=== PATIENT | female | born 1970 | race African-American/Black ===

== ENCOUNTER 2022-03-15 09:55 | Observation (INO) ==
[2022-03-15] MEDS ORDERED: HYDROmorphone 1 MG/1 ML SYRINGE IV STA ×3 (14:06→16:23)
[2022-03-15] MEDS ORDERED: ONDANSETRON 4 MG/2 ML VIAL IV STA (14:06)
[2022-03-15] MEDS ORDERED: methylPREDNISolone SOD SUC 125 MG/2 ML VIAL IV STA (14:22)
[2022-03-15 14:45] LABS: Basophils # 0.1 10*3/uL (0.0-0.2); Basophils % 0.8 % (0.0-0.8); Eosinophils # 0.2 10*3/uL (0.0-0.87); Eosinophils % 1.8 % (0.00-10.9); Hematocrit 28.8 VOL% (35.7-47.0); Hemoglobin 9.5 GM/DL (12.0-16.0); Immature Granulocytes % 3.2 %; Immature Granulocytes Absolute 0.29 #; Lymphocytes # 1.1 10*3/uL (1.4-4.0); Lymphocytes % 11.8 % (21.3-54.2); Mean Corpuscular Volume 95.7 FL (87-102); Mean Platelet Volume 11.1 FL (9.6-12.0); Monocytes # 0.5 10*3/uL (0.11-0.8); Monocytes % 5.6 % (1.7-12.7); NRBC # 0.48 10*3/uL; Neutrophils % 76.8 % (38.7-73.9); Platelet Count 367 T/CUMM (130-400); Red Blood Count 3.01 MC/CUMM (3.8-5.5); Red Cell Distribution Width 18.1 % (9.3-17.3)
[2022-03-15 14:55] LABS: INR 1.2; PT Patient Result 12.7 SECS (10.5-12.0)
[2022-03-15 15:03] LABS: Albumin 2.2 G/DL (3.4-5.0); Bilirubin,Total 1.8 MG/DL (0.20-1.00); Potassium 3.7 MMOL/L (3.5-5.1); Total Protein 8.7 G/DL (6.4-8.2)
[2022-03-15] MEDS ORDERED: DEXTROSE 50% 25 GM/50 ML VIAL IV PRN (15:59)
[2022-03-15] MEDS ORDERED: GLUCAGON 1 MG VIAL IM PRN ×2 (15:59)
[2022-03-15] MEDS ORDERED: DEXTROSE 10% 250 ML BAG IV PRN (16:07)
[2022-03-15] MEDS: INSULIN LISPRO 100 UNIT/ML SUBCUT SCH ×2 (17:48→21:04)
[2022-03-15] MEDS ORDERED: fentaNYL 75 MCG/HR PATCH TRANSDERM SCH (18:00)
[2022-03-15] MEDS: oxyCODONE/ACETAMINOPHEN 5-325 MG TABLET PO PRN ×2 (18:05→23:55)
[2022-03-15] MEDS: ENOXAPARIN 40 MG/0.4 ML SYRINGE SUBCUT SCH (18:10)
[2022-03-15 19:32] LABS: Bilirubin,Urine Moderate mg/dL (Negative); Blood, Urine Negative (Negative); Glucose,Urine (UA) Negative (Negative); Ketones,Urine Negative (Negative); Nitrite,Urine Negative (Negative); Protein,Urine 30 mg/dL (Negative); Urine Appearance Clear (Clear); Urine Color Dark Yellow (Yellow); Urine pH 5.5 (4.5-8.0)
[2022-03-15 19:33] LABS: Mucus,Urine Occasional /LPF (Occasional); Squamous Epithelial Cell,Urine Occasional /HPF (0-10)
[2022-03-15] MEDS: MORPHINE 2 MG/1 ML SYRINGE IV PRN (20:49)
[2022-03-15] MEDS ORDERED: ALUMINUM/MAGNES/SIMETH MAX STR 30 ML UDCUP PO PRN (22:03)
[2022-03-15] MEDS: ONDANSETRON 4 MG/2 ML VIAL IV PRN (22:30)
[2022-03-16] MEDS: MORPHINE 2 MG/1 ML SYRINGE IV PRN ×5 (01:56→20:09)
[2022-03-16] MEDS: oxyCODONE/ACETAMINOPHEN 5-325 MG TABLET PO PRN ×2 (05:53→21:57)
[2022-03-16] MEDS: ONDANSETRON 4 MG/2 ML VIAL IV PRN ×3 (07:58→15:55)
[2022-03-16] MEDS: INSULIN LISPRO 100 UNIT/ML SUBCUT SCH ×4 (07:59→20:44)
[2022-03-16] MEDS: PANTOPRAZOLE 40 MG TABLET PO SCH (09:27)
[2022-03-16] MEDS: POLYETHYLENE GLYCOL POWDER 17 GM PACK PO SCH (11:54)
[2022-03-16] MEDS: ENOXAPARIN 40 MG/0.4 ML SYRINGE SUBCUT SCH (15:56)
[2022-03-16] MEDS: azaTHIOprine 50 MG TABLET PO SCH (21:00)
[2022-03-16] MEDS ORDERED: PYRIDOSTIGMINE 60 MG TABLET PO SCH (21:00)
[2022-03-16] MEDS: DOCUSATE SODIUM 100 MG CAPSULE PO SCH (21:00)
[2022-03-17] MEDS: MORPHINE 2 MG/1 ML SYRINGE IV PRN ×3 (00:06→08:29)
[2022-03-17 06:12] LABS: Basophils # 0.1 10*3/uL (0.0-0.2); Basophils % 0.9 % (0.0-0.8); Eosinophils # 0.1 10*3/uL (0.0-0.87); Eosinophils % 1.7 % (0.00-10.9); Hemoglobin 8.5 GM/DL (12.0-16.0); Immature Granulocytes % 2.6 %; Immature Granulocytes Absolute 0.21 #; Lymphocytes # 1.3 10*3/uL (1.4-4.0); Lymphocytes % 16.2 % (21.3-54.2); Mean Corpuscular HGB Conc 32.7 GM/DL (32-36); Mean Platelet Volume 10.7 FL (9.6-12.0); Monocytes # 0.5 10*3/uL (0.11-0.8); Monocytes % 6.3 % (1.7-12.7); NRBC # 0.42 10*3/uL; Neutrophils % 72.3 % (38.7-73.9); Platelet Count 312 T/CUMM (130-400); Red Blood Count 2.68 MC/CUMM (3.8-5.5); Red Cell Distribution Width 18.7 % (9.3-17.3); White Blood Count 8.1 T/CUMM (4-12)
[2022-03-17 06:30] LABS: Osmolality,Calculated 269.1 MOS/KG (273-304); Potassium 4.2 MMOL/L (3.5-5.1)
[2022-03-17 08:17] VITALS: BP 101/65
[2022-03-17] MEDS: INSULIN LISPRO 100 UNIT/ML SUBCUT SCH ×2 (08:25→11:32)
[2022-03-17] MEDS: POLYETHYLENE GLYCOL POWDER 17 GM PACK PO SCH (08:27)
[2022-03-17] MEDS: ONDANSETRON 4 MG/2 ML VIAL IV PRN (08:29)
[2022-03-17] MEDS: DOCUSATE SODIUM 100 MG CAPSULE PO SCH (08:31)
[2022-03-17] MEDS: PANTOPRAZOLE 40 MG TABLET PO SCH (08:31)
[2022-03-17] MEDS: azaTHIOprine 50 MG TABLET PO SCH (08:31)
[2022-03-17] MEDS ORDERED: predniSONE 5 MG TABLET PO SCH (09:00)
[2022-03-17] MEDS ORDERED: LISINOPRIL/HCTZ 20-25 MG TABLET PO SCH (09:00)
[2022-03-17] MEDS ORDERED: amLODIPine 2.5 MG TABLET PO SCH (09:00)
[2022-03-17] MEDS: oxyCODONE/ACETAMINOPHEN 5-325 MG TABLET PO PRN (11:32)
== END 2022-03-17 12:05 | disposition home or self-care (01) ==
LOC: N.ED 09:55 → N.TELES 09:55
PROVIDERS: ADMIT Internal Medicine; ATTEND Internal Medicine

== ENCOUNTER 2022-03-21 13:12 | Inpatient (IN) ==
[2022-03-21] MEDS ORDERED: ONDANSETRON 4 MG/2 ML VIAL IV STA ×2 (14:21→18:14)
[2022-03-21] MEDS ORDERED: SODIUM CHLORIDE 0.9% 1,000 ML IV STA (14:21)
[2022-03-21] MEDS ORDERED: PANTOPRAZOLE 40 MG VIAL IV STA (14:22)
[2022-03-21] MEDS ORDERED: MORPHINE 2 MG/1 ML SYRINGE IV STA (14:23)
[2022-03-21 14:34] LABS: Basophils # 0.1 10*3/uL (0.0-0.2); Basophils % 0.6 % (0.0-0.8); Eosinophils % 0.3 % (0.00-10.9); Hematocrit 26.1 VOL% (35.7-47.0); Hemoglobin 8.5 GM/DL (12.0-16.0); Immature Granulocytes % 3.9 %; Immature Granulocytes Absolute 0.47 #; Lymphocytes # 1.4 10*3/uL (1.4-4.0); Lymphocytes % 11.2 % (21.3-54.2); Mean Corpuscular HGB Conc 32.6 GM/DL (32-36); Mean Corpuscular Volume 96.3 FL (87-102); Mean Platelet Volume 11.7 FL (9.6-12.0); Monocytes # 0.6 10*3/uL (0.11-0.8); Monocytes % 4.7 % (1.7-12.7); NRBC # 1.71 10*3/uL; Neutrophils % 79.3 % (38.7-73.9); Platelet Count 233 T/CUMM (130-400); Red Blood Count 2.71 MC/CUMM (3.8-5.5); Red Cell Distribution Width 22.2 % (9.3-17.3); White Blood Count 12.1 T/CUMM (4-12)
[2022-03-21 14:45] LABS: INR 1.3; PT Patient Result 13.7 SECS (10.5-12.0)
[2022-03-21 14:59] LABS: Albumin 1.9 G/DL (3.4-5.0); Calcium 9.9 MG/DL (8.5-10.1); Osmolality,Calculated 271.2 MOS/KG (273-304); Potassium 5.2 MMOL/L (3.5-5.1); Total Protein 8.4 G/DL (6.4-8.2)
[2022-03-21 15:09] LABS: Band Neutrophils 4 % (0-10); Eosinophils 2 % (0-10); Lymphocytes 8 % (20-55); Metamyelocytes 2 %; Nucleated Red Blood Cells 16 (0-5); Total Cells Counted 100
[2022-03-21 15:12] LABS: Anisocytosis Slight; Hypochromia Slight; Target Cells Slight
[2022-03-21 15:14] LABS: Basophilic Stippling Slight; Platelet Estimate Normal; Polychromasia 1+
[2022-03-21 15:26] LABS: Bilirubin,Total 6.4 MG/DL (0.20-1.00)
[2022-03-21 15:52] LABS: Protein,Urine Negative (Negative); Urine Appearance Clear (Clear); Urine Color Yellow (Yellow); Urine pH 5.5 (4.5-8.0)
[2022-03-21 15:53] LABS: Bilirubin,Urine Large mg/dL (Negative); Blood, Urine Negative (Negative); Glucose,Urine (UA) 100 mg/dL (Negative); Ketones,Urine Trace mg/dL (Negative); Nitrite,Urine Negative (Negative); Urine Urobilinogen >= 8.0 eU/dL (<2.0)
[2022-03-21 15:58] LABS: Bacteria,Urine Occasional /HPF (Few); Hyaline Casts,Urine 47 /LPF (0-3); Mucus,Urine Occasional /LPF (Occasional); RBC,Urine 6 /HPF (0-4); Squamous Epithelial Cell,Urine Occasional /HPF (0-10)
[2022-03-21] MEDS ORDERED: HYDROmorphone 1 MG/1 ML SYRINGE IV STA ×2 (16:23→18:14)
[2022-03-21] MEDS ORDERED: GLUCAGON 1 MG VIAL IM PRN (18:25)
[2022-03-21] MEDS ORDERED: ONDANSETRON 4 MG/2 ML VIAL IV PRN (18:25)
[2022-03-21] MEDS ORDERED: DEXTROSE 10% 250 ML BAG IV PRN (18:40)
[2022-03-21] MEDS: SODIUM CHLORIDE 0.9% 1,000 ML IV SCH (19:18)
[2022-03-21] MEDS: HYDROmorphone 1 MG/1 ML SYRINGE IV PRN (22:04)
[2022-03-21] MEDS: azaTHIOprine 50 MG TABLET PO SCH (22:06)
[2022-03-21] MEDS: PYRIDOSTIGMINE 60 MG TABLET PO SCH (22:07)
[2022-03-22] MEDS: HYDROmorphone 1 MG/1 ML SYRINGE IV PRN ×8 (01:03→22:03)
[2022-03-22] MEDS: SODIUM CHLORIDE 0.9% 1,000 ML IV SCH ×3 (04:01→18:19)
[2022-03-22] MEDS ORDERED: PANTOPRAZOLE 40 MG TABLET PO SCH (06:30)
[2022-03-22 06:57] LABS: Basophils # 0.1 10*3/uL (0.0-0.2); Basophils % 0.6 % (0.0-0.8); Eosinophils # 0.1 10*3/uL (0.0-0.87); Eosinophils % 0.6 % (0.00-10.9); Hematocrit 23.6 VOL% (35.7-47.0); Hemoglobin 7.7 GM/DL (12.0-16.0); Immature Granulocytes % 4.2 %; Immature Granulocytes Absolute 0.43 #; Lymphocytes % 9.8 % (21.3-54.2); Mean Corpuscular HGB Conc 32.6 GM/DL (32-36); Mean Corpuscular Volume 98.3 FL (87-102); Mean Platelet Volume 11.8 FL (9.6-12.0); Monocytes # 0.5 10*3/uL (0.11-0.8); Monocytes % 5.2 % (1.7-12.7); NRBC # 0.98 10*3/uL; Neutrophils % 79.6 % (38.7-73.9); Platelet Count 183 T/CUMM (130-400); Red Cell Distribution Width 22.2 % (9.3-17.3); White Blood Count 10.3 T/CUMM (4-12)
[2022-03-22 07:12] LABS: Albumin 1.7 G/DL (3.4-5.0); Calcium 9.3 MG/DL (8.5-10.1); Osmolality,Calculated 276.8 MOS/KG (273-304); Potassium 4.6 MMOL/L (3.5-5.1); Total Protein 7.8 G/DL (6.4-8.2)
[2022-03-22 07:21] LABS: Band Neutrophils 2 % (0-10); Eosinophils 1 % (0-10); Hypochromia Slight; Lymphocytes 7 % (20-55); Nucleated Red Blood Cells 4 (0-5); Platelet Estimate Adequate; Polychromasia Slight; Total Cells Counted 100
[2022-03-22 07:22] LABS: Macrocytosis Slight
[2022-03-22] MEDS: POLYETHYLENE GLYCOL POWDER 17 GM PACK PO SCH (09:40)
[2022-03-22] MEDS: predniSONE 5 MG TABLET PO SCH (09:41)
[2022-03-22] MEDS: LISINOPRIL/HCTZ 20-25 MG TABLET PO SCH (09:41)
[2022-03-22] MEDS: azaTHIOprine 50 MG TABLET PO SCH ×2 (09:41→20:54)
[2022-03-22] MEDS: PYRIDOSTIGMINE 60 MG TABLET PO SCH ×4 (09:41→20:54)
[2022-03-22] MEDS: amLODIPine 2.5 MG TABLET PO SCH (09:42)
[2022-03-22] MEDS: PANTOPRAZOLE 40 MG TABLET PO SCH (09:42)
[2022-03-22] MEDS: ESTRADIOL 1 MG TABLET PO SCH (09:42)
[2022-03-22] MEDS: fentaNYL 75 MCG/HR PATCH TRANSDERM SCH (16:01)
[2022-03-22] MEDS ORDERED: HYDROmorphone 1 MG/1 ML SYRINGE IV ONE (23:41)
[2022-03-23] MEDS: oxyCODONE/ACETAMINOPHEN 5-325 MG TABLET PO PRN ×2 (01:35→16:17)
[2022-03-23] MEDS: HYDROmorphone 1 MG/1 ML SYRINGE IV PRN ×6 (02:51→23:34)
[2022-03-23] MEDS: SODIUM CHLORIDE 0.9% 1,000 ML IV SCH ×3 (06:05→20:12)
[2022-03-23] MEDS: azaTHIOprine 50 MG TABLET PO SCH ×2 (09:32→20:07)
[2022-03-23] MEDS: ESTRADIOL 1 MG TABLET PO SCH (09:32)
[2022-03-23] MEDS: PANTOPRAZOLE 40 MG TABLET PO SCH (09:32)
[2022-03-23] MEDS: amLODIPine 2.5 MG TABLET PO SCH (09:32)
[2022-03-23] MEDS: LISINOPRIL/HCTZ 20-25 MG TABLET PO SCH (09:33)
[2022-03-23] MEDS: predniSONE 5 MG TABLET PO SCH (09:33)
[2022-03-23] MEDS: POLYETHYLENE GLYCOL POWDER 17 GM PACK PO SCH (09:34)
[2022-03-23] MEDS: PYRIDOSTIGMINE 60 MG TABLET PO SCH ×4 (09:39→20:07)
[2022-03-24] MEDS: SODIUM CHLORIDE 0.9% 1,000 ML IV SCH ×4 (02:35→19:45)
[2022-03-24] MEDS: HYDROmorphone 1 MG/1 ML SYRINGE IV PRN ×6 (03:53→19:46)
[2022-03-24] MEDS: oxyCODONE/ACETAMINOPHEN 5-325 MG TABLET PO PRN ×2 (05:57→21:43)
[2022-03-24] MEDS: predniSONE 5 MG TABLET PO SCH (08:18)
[2022-03-24] MEDS: ESTRADIOL 1 MG TABLET PO SCH (08:19)
[2022-03-24] MEDS: PANTOPRAZOLE 40 MG TABLET PO SCH (08:19)
[2022-03-24] MEDS: amLODIPine 2.5 MG TABLET PO SCH (08:19)
[2022-03-24] MEDS: PYRIDOSTIGMINE 60 MG TABLET PO SCH ×4 (08:19→21:42)
[2022-03-24] MEDS: azaTHIOprine 50 MG TABLET PO SCH ×2 (08:19→21:41)
[2022-03-24] MEDS: LISINOPRIL/HCTZ 20-25 MG TABLET PO SCH (08:19)
[2022-03-24] MEDS: POLYETHYLENE GLYCOL POWDER 17 GM PACK PO SCH (08:20)
[2022-03-24] MEDS: cefTRIAXone 1,000 MG in SODIUM CHLORIDE 0.9% 100 ML IV SCH (18:36)
[2022-03-25] MEDS: HYDROmorphone 1 MG/1 ML SYRINGE IV PRN ×4 (00:13→13:49)
[2022-03-25] MEDS: oxyCODONE/ACETAMINOPHEN 5-325 MG TABLET PO PRN ×2 (02:53→07:29)
[2022-03-25] MEDS: SODIUM CHLORIDE 0.9% 1,000 ML IV SCH ×4 (03:00→18:03)
[2022-03-25 03:54] LABS: Basophils % 0.3 % (0.0-0.8); Eosinophils # 0.1 10*3/uL (0.0-0.87); Eosinophils % 0.6 % (0.00-10.9); Hematocrit 21.9 VOL% (35.7-47.0); Hemoglobin 6.9 GM/DL (12.0-16.0); Immature Granulocytes Absolute 0.28 #; Lymphocytes % 10.9 % (21.3-54.2); Mean Corpuscular HGB Conc 31.5 GM/DL (32-36); Mean Corpuscular Volume 100.9 FL (87-102); Mean Platelet Volume 11.6 FL (9.6-12.0); Monocytes # 0.5 10*3/uL (0.11-0.8); Monocytes % 5.5 % (1.7-12.7); NRBC # 0.53 10*3/uL; Neutrophils % 79.7 % (38.7-73.9); Platelet Count 138 T/CUMM (130-400); Red Blood Count 2.17 MC/CUMM (3.8-5.5); Red Cell Distribution Width 23.3 % (9.3-17.3); White Blood Count 9.3 T/CUMM (4-12)
[2022-03-25 04:08] LABS: Calcium 9.5 MG/DL (8.5-10.1); Osmolality,Calculated 277.5 MOS/KG (273-304); Potassium 4.2 MMOL/L (3.5-5.1)
[2022-03-25 04:18] LABS: Band Neutrophils 4 % (0-10); Eosinophils 2 % (0-10); Lymphocytes 6 % (20-55); Nucleated Red Blood Cells 8 (0-5); Total Cells Counted 100
[2022-03-25 04:19] LABS: Hypochromia Slight; Macrocytosis Slight; Platelet Estimate Adequate; Polychromasia Slight
[2022-03-25] MEDS ORDERED: SODIUM CHLORIDE 0.9% 1,000 ML IV PRN (08:05)
[2022-03-25] MEDS: amLODIPine 2.5 MG TABLET PO SCH (08:38)
[2022-03-25] MEDS: PANTOPRAZOLE 40 MG TABLET PO SCH (08:38)
[2022-03-25] MEDS: ESTRADIOL 1 MG TABLET PO SCH (08:38)
[2022-03-25] MEDS: predniSONE 5 MG TABLET PO SCH (08:39)
[2022-03-25] MEDS: POLYETHYLENE GLYCOL POWDER 17 GM PACK PO SCH (08:39)
[2022-03-25] MEDS: LISINOPRIL/HCTZ 20-25 MG TABLET PO SCH (08:39)
[2022-03-25] MEDS: azaTHIOprine 50 MG TABLET PO SCH ×2 (08:39→22:29)
[2022-03-25] MEDS: PYRIDOSTIGMINE 60 MG TABLET PO SCH ×4 (08:39→22:28)
[2022-03-25] MEDS: fentaNYL 75 MCG/HR PATCH TRANSDERM SCH (08:40)
[2022-03-25] MEDS ORDERED: fentaNYL 100 MCG/HR PATCH TRANSDERM SCH (12:00)
[2022-03-25] MEDS: cefTRIAXone 1,000 MG in SODIUM CHLORIDE 0.9% 100 ML IV SCH (18:28)
[2022-03-25] MEDS ORDERED: NALOXONE 0.4 MG/ML VIAL IV PRN ×2 (18:36→18:42)
[2022-03-25] MEDS ORDERED: HYDROmorphone PCA 30 MG/30 ML SYRINGE IV SCH (19:00)
[2022-03-25] MEDS: HYDROmorphone PCA 30 MG/30 ML SYRINGE IV SCH (19:36)
[2022-03-26 05:23] LABS: Basophils % 0.4 % (0.0-0.8); Eosinophils # 0.1 10*3/uL (0.0-0.87); Eosinophils % 0.7 % (0.00-10.9); Hematocrit 27.6 VOL% (35.7-47.0); Hemoglobin 8.8 GM/DL (12.0-16.0); Immature Granulocytes % 5.4 %; Immature Granulocytes Absolute 0.45 #; Lymphocytes % 11.9 % (21.3-54.2); Mean Corpuscular HGB Conc 31.9 GM/DL (32-36); Mean Corpuscular Volume 98.6 FL (87-102); Mean Platelet Volume 11.1 FL (9.6-12.0); Monocytes # 0.5 10*3/uL (0.11-0.8); Monocytes % 5.6 % (1.7-12.7); NRBC # 0.71 10*3/uL; Platelet Count 118 T/CUMM (130-400); Red Cell Distribution Width 23.4 % (9.3-17.3); White Blood Count 8.4 T/CUMM (4-12)
[2022-03-26 05:38] LABS: Calcium 9.9 MG/DL (8.5-10.1); Osmolality,Calculated 279.5 MOS/KG (273-304); Potassium 4.7 MMOL/L (3.5-5.1)
[2022-03-26 05:52] LABS: Eosinophils 1 % (0-10); Lymphocytes 12 % (20-55); Total Cells Counted 100
[2022-03-26 05:53] LABS: Platelet Estimate Adequate
[2022-03-26] MEDS: SODIUM CHLORIDE 0.9% 1,000 ML IV SCH ×2 (07:36→11:00)
[2022-03-26] MEDS: POLYETHYLENE GLYCOL POWDER 17 GM PACK PO SCH (09:06)
[2022-03-26] MEDS: PYRIDOSTIGMINE 60 MG TABLET PO SCH ×4 (09:06→22:06)
[2022-03-26] MEDS: azaTHIOprine 50 MG TABLET PO SCH ×2 (09:06→22:06)
[2022-03-26] MEDS: ESTRADIOL 1 MG TABLET PO SCH (09:07)
[2022-03-26] MEDS: amLODIPine 2.5 MG TABLET PO SCH (09:07)
[2022-03-26] MEDS: LISINOPRIL/HCTZ 20-25 MG TABLET PO SCH (09:07)
[2022-03-26] MEDS: PANTOPRAZOLE 40 MG TABLET PO SCH (09:07)
[2022-03-26] MEDS: predniSONE 5 MG TABLET PO SCH (09:07)
[2022-03-26] MEDS ORDERED: GLUCAGON 1 MG VIAL IM PRN (09:40)
[2022-03-26] MEDS ORDERED: DEXTROSE 10% 250 ML BAG IV PRN (09:44)
[2022-03-26] MEDS: AMINO ACIDS/DEXT/LYTES 4.25-5% 2,000 ML IV SCH (15:29)
[2022-03-26] MEDS: HYDROmorphone PCA 30 MG/30 ML SYRINGE IV SCH (18:05)
[2022-03-26] MEDS: cefTRIAXone 1,000 MG in SODIUM CHLORIDE 0.9% 100 ML IV SCH (18:20)
[2022-03-27 04:41] LABS: Basophils % 0.3 % (0.0-0.8); Eosinophils % 0.3 % (0.00-10.9); Hematocrit 27.1 VOL% (35.7-47.0); Hemoglobin 8.6 GM/DL (12.0-16.0); Immature Granulocytes % 3.5 %; Immature Granulocytes Absolute 0.31 #; Lymphocytes # 1.3 10*3/uL (1.4-4.0); Lymphocytes % 15.1 % (21.3-54.2); Mean Corpuscular HGB Conc 31.7 GM/DL (32-36); Mean Corpuscular Volume 99.3 FL (87-102); Mean Platelet Volume 11.9 FL (9.6-12.0); Monocytes # 0.4 10*3/uL (0.11-0.8); Monocytes % 4.8 % (1.7-12.7); NRBC # 0.75 10*3/uL; Platelet Count 116 T/CUMM (130-400); Red Blood Count 2.73 MC/CUMM (3.8-5.5); Red Cell Distribution Width 22.9 % (9.3-17.3); White Blood Count 8.7 T/CUMM (4-12)
[2022-03-27 04:53] LABS: Calcium 10.4 MG/DL (8.5-10.1); Osmolality,Calculated 284.4 MOS/KG (273-304); Potassium 4.8 MMOL/L (3.5-5.1)
[2022-03-27 05:02] LABS: Lymphocytes 11 % (20-55); Platelet Estimate Adequate; Total Cells Counted 100
[2022-03-27] MEDS ORDERED: NALOXONE 0.4 MG/ML VIAL IV PRN (11:10)
[2022-03-27] MEDS ORDERED: HYDROmorphone PCA 30 MG/30 ML SYRINGE IV SCH (11:30)
[2022-03-27] MEDS: SODIUM CHLORIDE 0.9% 1,000 ML IV SCH (14:45)
[2022-03-27] MEDS: PYRIDOSTIGMINE 60 MG TABLET PO SCH (14:46)
[2022-03-27] MEDS: amLODIPine 2.5 MG TABLET PO SCH (14:47)
[2022-03-27] MEDS: azaTHIOprine 50 MG TABLET PO SCH (14:47)
[2022-03-27] MEDS: POLYETHYLENE GLYCOL POWDER 17 GM PACK PO SCH (14:47)
[2022-03-27] MEDS: predniSONE 5 MG TABLET PO SCH (14:48)
[2022-03-27] MEDS: ESTRADIOL 1 MG TABLET PO SCH (14:48)
[2022-03-27] MEDS: PANTOPRAZOLE 40 MG TABLET PO SCH (14:48)
[2022-03-27] MEDS: LISINOPRIL/HCTZ 20-25 MG TABLET PO SCH (14:48)
[2022-03-27] MEDS: AMINO ACIDS/DEXT/LYTES 4.25-5% 2,000 ML IV SCH ×2 (15:15→15:50)
[2022-03-27 16:16] LABS: Bacteria,Urine Occasional /HPF (Few); Hyaline Casts,Urine 3 /LPF (0-3); Mucus,Urine Few /LPF (Occasional); RBC,Urine 4 /HPF (0-4); Squamous Epithelial Cell,Urine Occasional /HPF (0-10); Urine Appearance Clear (Clear); Urine Specific Gravity 1.025 (1.001-1.035); Urine pH 5.5 (4.5-8.0)
[2022-03-27 16:17] LABS: Bilirubin,Urine Large mg/dL (Negative); Blood, Urine Negative (Negative); Glucose,Urine (UA) 100 mg/dL (Negative); Ketones,Urine Negative (Negative); Nitrite,Urine Negative (Negative); Protein,Urine 30 mg/dL (Negative); Urine Color Dark yellow (Yellow)
[2022-03-27] MEDS ORDERED: AMINO ACIDS/DEXT/LYTES 4.25-5% 2,000 ML IV SCH (17:00)
[2022-03-27] MEDS: HYDROmorphone PCA 30 MG/30 ML SYRINGE IV SCH (18:01)
[2022-03-28 00:03] VITALS: BP 68/40
== END 2022-03-27 23:41 | disposition expired | DRG 948 ==
LOC: N.EDINP 13:12 → N.ED 13:12 → SUATTDRO 18:25 → N.TELEN 19:25 → SUATTDRO 03-22 14:59
PROVIDERS: ADMIT Internal Medicine; ATTEND Hospitalist